=== PATIENT | male | born 1935 | race Caucasian/White ===

== ENCOUNTER → 2016-07-17 | Outpatient (CLI) | payer MEDICARE ==
[~2016-07-17] MED LIST: 8 HO650T PO; ACET500T37 PO; ALBU83IN INH; AMLO5TAB2 PO; ASPI325T PO; BENA40TA2 PO; BENCRE TOP; BISO5TAB5 PO; CARV25TA PO; CLOP75TA2 PO; COLA100C PO; DEXA10IN IV; DIGO0.25 PO; ELIQ5TAB PO; FURO10IN17 IM; FURO40SY IM; FURO40TA2 PO; FURO8INJ IM; GLIM4TAB PO; IPRASOL4 INH; MAGN400T5 PO; METF-415 PO; NITR2OI TOP; OMEP20CA3 PO; SENN8.6T8 PO; SIMV10TA2 PO; SITA50TAB PO; SPIR25TA2 PO; VITMTA PO
--- NOTE | 2016-07-17 13:24 | REP ---
CHEST X-RAY, TWO VIEWS: HISTORY: Congestive heart failure. Comparison chest x-ray June 20, 2016. FINDINGS: There is extensive bilateral calcific pleural plaquing consistent with previous asbestos exposure. There is also some pleural scarring and blunting of the posterior pleural angles unchanged. There is some pleuroparenchymal scarring along the right heart border unchanged. Heart is not enlarged. The aorta is calcific. No significant bony abnormality is seen. IMPRESSION: Extensive bilateral calcific pleural plaquing consistent with previous asbestos exposure. No evidence of infiltrate, pulmonary edema, or cardiomegaly.
== END ==
LOC: M CLY 11:23
PROVIDERS: ATTEND Family Medicine
DX: I50.9 Heart failure, unspecified (principal); R91.8 Other nonspecific abnormal finding of lung field

== ENCOUNTER 2016-07-19 07:49 | Emergency (ER) | payer MEDICARE ==
[2016-07-19 08:48] LABS: BASO % 0.2 % (0.0-1.0); EOS # 0.1 K/mm3 (0.0-0.50); EOS % 0.9 % (0.0-3.0); LARGE UNSTAINED CELL # 0.1 K/mm3 (0.0-0.4); LARGE UNSTAINED CELL % 1.7 % (0.0-4.0); LYMPH # 0.7 K/mm3 (1.5-4.5); LYMPH % 10.4 % (24.0-44.0); MEAN CORPUSCULAR HGB CONC 33.5 g/dl (32.0-36.5); MEAN CORPUSCULAR VOLUME 80.7 fl (80.0-96.0); MONO # 0.4 K/mm3 (0.0-0.8); MONO % 6.1 % (0.0-5.0); NEUTROPHILS # 5.1 K/mm3 (1.8-7.7); NEUTROPHILS % 80.7 % (36.0-66.0); PLATELET COUNT, AUTOMATED 155 k/mm3 (150-450); RED CELL DISTRIBUTION WIDTH 13.9 % (11.5-14.5); WHITE BLOOD COUNT 6.3 K/mm3 (4.0-10.0)
[2016-07-19 09:14] LABS: ALBUMIN 3.1 GM/DL (3.2-5.2); ALBUMIN/GLOBULIN RATIO 1.07 (1.00-1.93); ALKALINE PHOSPHATASE 114 U/L (45-117); ALT/SGPT 19 U/L (12-78); ANION GAP 9 MEQ/L (8-16); AST/SGOT 15 U/L (15-37); BILIRUBIN,DIRECT 0.2 MG/DL (0.0-0.2); BILIRUBIN,TOTAL 0.6 MG/DL (0.2-1.0); BLOOD UREA NITROGEN 13 MG/DL (7-18); CALCIUM LEVEL 8.7 MG/DL (8.8-10.2); CARBON DIOXIDE LEVEL 32 MEQ/L (21-32); CHLORIDE LEVEL 102 MEQ/L (98-107); CREATININE FOR GFR 0.84 MG/DL (0.70-1.30); GLOMERULAR FILTRATION RATE > 60.0 (>42); GLUCOSE, FASTING 129 MG/DL (83-110); POTASSIUM SERUM 4.4 MEQ/L (3.5-5.1); SODIUM LEVEL 143 MEQ/L (136-145)
--- NOTE | 2016-07-19 09:44 | REP ---
CT HEAD WITHOUT CONTRAST: HISTORY: Altered mental status. COMPARISON: 06/12/2016 Areas of decreased attenuation are present in the periventricular and subcortical white matter. This represents small vessel ischemic disease. There is no intraparenchymal hemorrhage, mass or midline shift. The ventricular system and cortical sulci as well as subarachnoid space in the posterior fossa are dilated consistent with moderate volume loss. There is no extracerebral collection. The visualized sinuses are clear. IMPRESSION: 1. Small vessel ischemic disease. 2. Moderate volume loss. Signed by Jonny Steinberg MD 07/19/2016 09:58 A
--- NOTE | 2016-07-19 09:46 | REP ---
SINGLE VIEW CHEST: Single view of the chest is performed. Comparison 07/17/2016 as well as prior exams. There are extensive bilateral calcified pleural plaques with significant pleural thickening and parenchymal fibrosis in the right lung base. There is no definite superimposed acute infiltrate. Heart is mildly prominent in size. There is mild calcification of the thoracic aorta. The mediastinal silhouette is unchanged. IMPRESSION: Extensive chronic changes as above without definite superimposed acute infiltrate. Signed by Aaron Correa MD 07/19/2016 03:18 P
--- NOTE | 2016-07-19 12:09 | ECGEPIP ---
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
--- NOTE | 2016-07-19 12:48 | EDDOCDS ---
Nurse's Notes [facility] Name: Ritchie Jin Age: 80 yrs Sex: Male : 1935 Arrival Date: 07/19/2016 Time: 07:49 Bed 17 Private MD: Cristian Dunlap D Diagnosis: Confusional arousals Presentation: 07/19 07:52 Presenting complaint: EMS states: Found in bath tub by , patient did not know how ck1 he got in tub. EMS called for stroke, no complaints/deficits. Suicide/Homicide risk assessment- the patient denies having any suicidal and/or homicidal ideations and does not present with any other emotional, behavioral or mental health complaints. 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 Transition of care: patient was not received from another setting of care. 07:52 Method Of Arrival: Ambulance ck1 07:59 Adult Sepsis Screening: Patient has new or worsening altered mentation (1 point). ck1 Patient's respiratory rate is less than 22. Systolic blood pressure is greater than 100. Patient has a qSOFA score of 1- Negative Sepsis Screen. 07:59 Acuity: CANDI Level 2 ck1 Triage Assessment: 08:08 General: Appears in no apparent distress, comfortable, Behavior is appropriate for age, ck1 cooperative, pleasant. Pain: Denies pain. Neurological: Level of Consciousness is awake, alert, Oriented to person, place. Cardiovascular: Rhythm is sinus rhythm. Respiratory: Respiratory effort is unlabored, Respiratory pattern is regular, symmetrical. GI: No deficits noted. Derm: Skin is pink, warm & dry. Musculoskeletal: Circulation, motion, and sensation intact Range of motion intact in all extremities. Historical: - Allergies: Oxycodone HCl; - Home Meds: 1. digoxin 125 mcg Oral tab 1 tab once daily 2. Plavix 75 mg Oral tab 1 tab once daily 3. bisoprolol fumarate 5 mg oral tab twice a day 4. metformin 1,000 mg Oral tab 1 tab 2 times per day 5. Tylenol 325 mg Oral tab 2 tabs every 4 hours as needed 6. aspirin 325 mg Oral tab 1 tab once daily 7. multivitamin Oral tab daily 8. nitroglycerin 0.4 mg SL subl as needed 9. Zocor 10 mg Oral tab 1 tab once daily 10. omeprazole 20 mg Oral cpDR 1 cap once daily 11. Senna with Docusate Sodium 8.6-50 mg oral tab 1 tabs once daily PRN 12. carvedilol 25 mg oral tab 1.5 tab 2 times per day 13. glimepiride 4 mg Oral tab 1 tab once daily 14. furosemide 40 mg Oral tab 1 tab 2 times per day 15. Januvia 50 mg oral tab once daily 16. Lasix 40 mg Oral tab 1.5 tabs once daily 17. spironolactone 25 mg Oral tab 0.5 tab once daily - PMHx: CHF; CVA; Diabetes - NIDDM: controlled; GERD; Hypercholesterolemia; Hypertension; - PSHx: Carpal Tunnel Repair- Bilateral; rebuild knuckle left thumb; - Social history: No barriers to communication noted, The patient speaks fluent Serbian, Speaks appropriately for age, Smoking status: Patient states was never smoker of tobacco. - Family history: Not pertinent. - : The pt / caregiver states he / she is on anticoagulants: Plavix. Home medication list is obtained from a discharge med list. - Exposure Risk Screening:: None identified. Screenin:14 Screening information is obtained from the patient. 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 A Fall Risk Bracelet was applied to the patient. Side Rails are placed in the up position. A Call [place] is given with instruction to call for help when getting out of bed. Fall Alert bracelet is placed on the patient. Assistance ADL's: Requires assistance with meal preparation, this assistance is provided by family members, housework, assistance is provided by family members, medication administration, assistance is provided by family members. Abuse/DV Screen: The patient / caregiver reports he/she is: not in a situation that causes fear, pain or injury. Nutritional screening: No deficits noted. home support is adequate. 08:41 Advance Directives: Currently, there is a health care proxy, Katelyn Jin (). ck1 Assessment: 08:16 General: see triage note. ck1 09:15 General: Appears in no apparent distress, comfortable, Behavior is appropriate for age, ck1 cooperative. Pain: Denies pain. Neurological: Level of Consciousness is awake, alert, obeys commands. Cardiovascular: Rhythm is irregular. Respiratory: Respiratory effort is unlabored, Respiratory pattern is regular, symmetrical. GI: No deficits noted. Derm: Skin is intact, Skin is pink, warm & dry. Musculoskeletal: Circulation, motion, and sensation intact Range of motion intact in all extremities. 10:15 Reassessment: Patient appears in no apparent distress at this time. Patient denies pain ck1 at this time. family members at bedside, call light in reach. 10:52 General: Appears in no apparent distress, comfortable, Behavior is appropriate for age, ck1 cooperative. Pain: Denies pain. Neurological: Level of Consciousness is awake, alert, obeys commands, Oriented to person, place. Cardiovascular: Rhythm is irregular Chest pain is denied. Respiratory: Respiratory effort is unlabored, Respiratory pattern is regular, symmetrical. GI: No deficits noted. Derm: Skin is intact, Skin is pink, warm & dry. Musculoskeletal: Circulation, motion, and sensation intact Range of motion intact in all extremities. 12:04 Reassessment: Patient appears in no apparent distress at this time. Patient denies pain ck1 at this time. resting quietly with eyes closed. Family members at bedside, call light in reach. Will continue to monitor patient. 12:38 General: Appears in no apparent distress, comfortable, Behavior is appropriate for age, ck1 cooperative. Pain: Denies pain. Neurological: Level of Consciousness is awake, alert, obeys commands, Oriented to person, place. Cardiovascular: Rhythm is irregular Chest pain is denied. Respiratory: Airway is patent Respiratory effort is even, unlabored, Respiratory pattern is regular, symmetrical. GI: No deficits noted. Derm: Skin is intact, Skin is pink, warm & dry. Musculoskeletal: Circulation, motion, and sensation intact Range of motion intact in all extremities. Vital Signs: 07:54 BP 165 / 81 (auto/); ck1 08:00 BP 165 / 81; Pulse 104; Resp 18; Temp 97.6(O); Pulse Ox 99% on R/A; Weight 66.59 kg ck1 (R); Height 66 in. (167.64 cm) (R); Pain 0/10; 08:01 Pulse 98 MON; Pulse Ox 98% ; ck1 08:15 BP 150 / 71 (auto/); ck1 08:15 Pulse 96 MON; Pulse Ox 97% ; ck1 08:29 Pulse 94 MON; Pulse Ox 96% ; ck1 08:30 BP 149 / 79 (auto/); ck1 08:45 BP 129 / 60 (auto/); ck1 08:45 Pulse 86 MON; Pulse Ox 97% ; ck1 09:00 BP 133 / 74 (auto/); ck1 09:00 Pulse 86 MON; Pulse Ox 97% ; ck1 09:15 BP 155 / 81 (auto/); ck1 09:15 Pulse 78 MON; Pulse Ox 96% ; ck1 09:30 BP 121 / 63 (auto/); ck1 09:30 Pulse 82 MON; Pulse Ox 97% ; ck1 09:45 BP 145 / 73 (auto/); ck1 09:45 Pulse 78 MON; Pulse Ox 96% ; ck1 10:00 BP 131 / 69 (auto/); ck1 10:00 Pulse 80 MON; Pulse Ox 96% ; ck1 10:15 BP 143 / 79 (auto/); ck1 10:15 Pulse 80 MON; Pulse Ox 97% ; ck1 10:29 Pulse 80 MON; Pulse Ox 97% ; ck1 10:30 BP 148 / 76 (auto/); ck1 10:45 BP 136 / 73 (auto/); ck1 10:45 Pulse 80 MON; Pulse Ox 95% ; ck1 11:00 BP 138 / 76 (auto/); ck1 11:00 Pulse 84 MON; Pulse Ox 98% ; ck1 11:15 BP 140 / 68 (auto/); ck1 11:15 Pulse 78 MON; Pulse Ox 97% ; ck1 11:30 Pulse 68 MON; Pulse Ox 97% ; ck1 11:30 BP 141 / 67 (auto/); ck1 11:45 BP 142 / 65 (auto/); ck1 11:45 Pulse 76 MON; Pulse Ox 97% ; ck1 12:00 BP 138 / 71 (auto/); ck1 12:00 Pulse 70 MON; Pulse Ox 97% ; ck1 12:15 BP 122 / 60 (auto/); ck1 12:15 Pulse 70 MON; Pulse Ox 96% ; ck1 12:16 Resp 18; Temp 98.2(O); Pain 0/10; ck1 12:38 BP 118 / 72; Pulse 85; Resp 18; Temp 98.2(O); Pulse Ox 97% on R/A; Pain 0/10; ck1 08:00 Body Mass Index 23.69 (66.59 kg, 167.64 cm) ck1 Vitals: 08:00 Log In Time N/A - ambulance arrival. ck1 ED Course: 07:50 Patient visited by Chad Denton PCA. jrd 07:50 Cristian Dunlap is Private Physician. jrd 07:50 Niurka Kaminski RN is Primary Nurse. jrd 07:50 Patient moved to Waiting jrd 07:50 Patient moved to 17 jrd 07:54 Mitali Rios MD is Attending Physician. fg 07:54 Patient visited by Mitali Rios MD. fg 08:00 Triage Initiated ck1 08:14 Patient visited by Niurka Kaminski RN. ck1 08:16 The patient / caregiver is instructed regarding the plan of care and ED course. ck1 08:16 Maintain field IV. Dressing intact. Site clean & dry. Gauge & site: 20 gauge in left FA.ck1 08:37 Patient visited by Karlos Walls PCA. jlf 08:37 Patient visited by Niurka Kaminski RN. ck1 08:37 Patient visited by Karlos Walls PCA. jlf 08:37 CBC with Diff Sent. ck1 08:37 Cardiac Injury Profile Sent. ck1 08:37 Liver Profile Sent. ck1 08:37 MED Profile Sent. ck1 08:37 Thyroid Stimulating Hormone Sent. ck1 08:37 EKG done. (by ED staff). Reviewed by Mitali Rios MD. jlf 08:37 Troponin Sent. ck1 08:37 Urinalysis Sent. ck1 08:38 Urine Culture Sent. ck1 09:00 [facility] [place] Agreement was scanned into [employer] and attached to record. pm4 09:04 Patient visited by Karlos Walls PCA. jlf 09:07 Patient name changed from Ritchie\S\\S\Foster\S\ to Ritchie\S\D\S\Foster. EDMS 09:28 Patient visited by Niurka Kaminski RN. ck1 09:43 Patient visited by Karlos Walls PCA. jlf 09:48 CT Head Without Contrast Returned. EDMS 09:48 Chest, 1 View Returned. EDMS 10:08 Patient visited by Niurka Kaminski RN. ck1 10:26 Patient visited by Karlos Walls PCA. jlf 10:50 Patient visited by Karlos Walls PCA. jlf 11:17 Patient visited by Karlos Walls PCA. jlf 11:45 Patient visited by Niurka Kaminski RN. ck1 12:04 Patient visited by Niurka Kaminski RN. ck1 12:09 No procedures done that require assistance. ck1 12:16 Patient visited by Niurka Kaminski RN. ck1 12:29 Cristian Dunlap is Referral Physician. fg 12:30 EKG-ADULT Returned. [facility] Point of Care Testing: Blood Glucose: 08:41 Blood Glucose: 122 mg/dL; ck1 Ranges: Order Results: Lab Order: CBC with Diff; SPEC'M 07/19/16 08:36 Test: WHITE BLOOD COUNT; Value: 6.3; Range: 4.0-10.0; Units: K/mm3; Status: F Test: RED BLOOD COUNT; Value: 4.32; Range: 4.30-6.10; Units: M/mm3; Status: F Test: HEMOGLOBIN; Value: 11.7; Range: 14.0-18.0; Abnormal: Below low normal; Units: g/dl; Status: F Test: HEMATOCRIT; Value: 34.8; Range: 42.0-52.0; Abnormal: Below low normal; Units: %; Status: F Test: MEAN CORPUSCULAR VOLUME; Value: 80.7; Range: 80.0-96.0; Units: fl; Status: F Test: MEAN CORPUSCULAR HEMOGLOBIN; Value: 27.0; Range: 27.0-33.0; Units: pg; Status: F Test: MEAN CORPUSCULAR HGB CONC; Value: 33.5; Range: 32.0-36.5; Units: g/dl; Status: F Test: RED CELL DISTRIBUTION WIDTH; Value: 13.9; Range: 11.5-14.5; Units: %; Status: F Test: PLATELET COUNT, AUTOMATED; Value: 155; Range: 150-450; Units: k/mm3; Status: F Test: NEUTROPHILS %; Value: 80.7; Range: 36.0-66.0; Abnormal: Above high normal; Units: %; Status: F Test: LYMPH %; Value: 10.4; Range: 24.0-44.0; Abnormal: Below low normal; Units: %; Status: F Test: MONO %; Value: 6.1; Range: 0.0-5.0; Abnormal: Above high normal; Units: %; Status: F Test: EOS %; Value: 0.9; Range: 0.0-3.0; Units: %; Status: F Test: BASO %; Value: 0.2; Range: 0.0-1.0; Units: %; Status: F Test: LARGE UNSTAINED CELL %; Value: 1.7; Range: 0.0-4.0; Units: %; Status: F Test: NEUTROPHILS #; Value: 5.1; Range: 1.8-7.7; Units: K/mm3; Status: F Test: LYMPH #; Value: 0.7; Range: 1.5-4.5; Abnormal: Below low normal; Units: K/mm3; Status: F Test: MONO #; Value: 0.4; Range: 0.0-0.8; Units: K/mm3; Status: F Test: EOS #; Value: 0.1; Range: 0.0-0.50; Units: K/mm3; Status: F Test: BASO #; Value: 0.0; Range: 0.0-0.2; Units: K/mm3; Status: F Test: LARGE UNSTAINED CELL #; Value: 0.1; Range: 0.0-0.4; Units: K/mm3; Status: F Lab Order: Cardiac Injury Profile; SPEC'M 07/19/16 08:36 Test: CPK CREATINE PHOSPHOKINASE; Value: 59; Range: 39-308; Units: U/L; Status: F Test: CK-MB VALUE MASS; Value: 2.9; Range: 0.0-3.6; Units: NG/ML; Status: F Test: MB/CK RELATIVE INDEX; Value: 4.91; Range: < OR =4; Abnormal: Above high normal; Status: F Test Note: ; DIAGNOSIS CRITERIA MMB ng/ml Relative Index (RI) NON-AMI < or = 5 N/A TAVARES ZONE > 5 < or = 4 AMI > 5 > 4 Lab Order: Liver Profile; SPEC'M 07/19/16 08:36 Test: AST/SGOT; Value: 15; Range: 15-37; Units: U/L; Status: F Test: ALT/SGPT; Value: 19; Range: 12-78; Units: U/L; Status: F Test: ALKALINE PHOSPHATASE; Value: 114; Range: 45-117; Units: U/L; Status: F Test: BILIRUBIN,TOTAL; Value: 0.6; Range: 0.2-1.0; Units: MG/DL; Status: F Test: BILIRUBIN,DIRECT; Value: 0.2; Range: 0.0-0.2; Units: MG/DL; Status: F Test: TOTAL PROTEIN; Value: 6.0; Range: 6.4-8.2; Abnormal: Below low normal; Units: GM/DL; Status: F Test: ALBUMIN; Value: 3.1; Range: 3.2-5.2; Abnormal: Below low normal; Units: GM/DL; Status: F Test: ALBUMIN/GLOBULIN RATIO; Value: 1.07; Range: 1.00-1.93; Status: F Lab Order: MED Profile; SPEC'M 07/19/16 08:36 Test: GLUCOSE, FASTING; Value: 129; Range: 83-110; Abnormal: Above high normal; Units: MG/DL; Status: F Test: BLOOD UREA NITROGEN; Value: 13; Range: 7-18; Units: MG/DL; Status: F Test: CREATININE FOR GFR; Value: 0.84; Range: 0.70-1.30; Units: MG/DL; Status: F Test: GLOMERULAR FILTRATION RATE; Value: > 60.0; Range: >42; Status: F Test: SODIUM LEVEL; Value: 143; Range: 136-145; Units: MEQ/L; Status: F Test: POTASSIUM SERUM; Value: 4.4; Range: 3.5-5.1; Units: MEQ/L; Status: F Test: CHLORIDE LEVEL; Value: 102; Range: 98-107; Units: MEQ/L; Status: F Test: CARBON DIOXIDE LEVEL; Value: 32; Range: 21-32; Units: MEQ/L; Status: F Test: ANION GAP; Value: 9; Range: 8-16; Units: MEQ/L; Status: F Test: CALCIUM LEVEL; Value: 8.7; Range: 8.8-10.2; Abnormal: Below low normal; Units: MG/DL; Status: F Test Note: ; Units are mL/min/1.73 m2 Chronic Kidney Disease Staging per NKF: Stage I & II GFR >=60 Normal to Mildly Decreased Stage III GFR 30-59 Moderately Decreased Stage IV GFR 15-29 Severely Decreased Stage V GFR <15 Very Little GFR Left ESRD GFR <15 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 0.10-1.50 ng/ml Increased Risk for Adverse Clinical Events. Evaluation of additional criterion and/or repeat testing in 2-6 hours is suggested to rule out myocardial damage. >= 1.50 ng/ml Indicative of Myocardial Injury. Lab Order: Urinalysis; SPEC'M 07/19/16 08:36 Test: APPEARANCE, URINE; Value: CLEAR; Range: CLEAR; Status: F Test: COLOR, URINE; Value: YELLOW; Range: YELLOW; Status: F Test: PH,URINE; Value: 5.0; Range: 5.0-9.0; Units: UNITS; Status: F Test: SPECIFIC GRAVITY URINE AUTO; Value: 1.015; Range: 1.002-1.035; Status: F Test: PROTEIN, URINE AUTO; Value: NEGATIVE; Range: NEGATIVE; Units: mg/dL; Status: F Test: GLUCOSE, URINE (UA) AUTO; Value: NEGATIVE; Range: NEGATIVE; Units: mg/dL; Status: F Test: KETONE, URINE AUTO; Value: NEGATIVE; Range: NEGATIVE; Units: mg/dL; Status: F Test: UROBILINOGEN, URINE AUTO; Value: 0.2; Range: 0.0-2.0; Units: mg/dL; Status: F Test: BILIRUBIN, URINE AUTO; Value: NEGATIVE; Range: NEGATIVE; Status: F Test: NITRITE, URINE AUTO; Value: NEGATIVE; Range: NEGATIVE; Status: F Test: LEUKOCYTE ESTERASE, URINE AUTO; Value: NEGATIVE; Range: NEGATIVE; Status: F Test: BLOOD, URINE BLOOD; Value: NEGATIVE; Range: NEGATIVE; Status: F Test: WBC, URINE AUTO; Value: 1; Range: 0-3; Units: /HPF; Status: F Test: RBC, URINE AUTO; Value: 1; Range: 0-3; Units: /HPF; Status: F Test: BACTERIA, URINE AUTO; Value: NEGATIVE; Range: NEGATIVE; Status: F Test: SQUAMOUS EPITHELIAL CELL UR AU; Value: 0; Range: 0-6; Units: /HPF; Status: F Test: MUCUS, URINE; Value: SMALL; Range: NEGATIVE; Status: F Test: HYALINE CAST, URINE AUTO; Value: 8; Range: 0-1; Units: /LPF; Status: F Lab Order: Fingerstick Blood Sugar; SPEC'M 07/19/16 08:40 Test: BEDSIDE GLUCOSE; Value: 122; Range: 83-110; Abnormal: Above high normal; Units: MG/DL; Status: F Radiology Order: CT Head Without Contrast Test: CT Head Without Contrast REASON FOR EXAMINATION: altered mental status; CT HEAD WITHOUT CONTRAST:; ; HISTORY: Altered mental status.; ; COMPARISON: 06/12/2016; ; Areas of decreased attenuation are present in the periventricular and subcortical; white matter. This represents small vessel ischemic disease. There is no; intraparenchymal hemorrhage, mass or midline shift. The ventricular system and; cortical sulci as well as subarachnoid space in the posterior fossa are dilated; consistent with moderate volume loss. There is no extracerebral collection. The; visualized sinuses are clear.; ; IMPRESSION:; ; 1. Small vessel ischemic disease.; ; 2. Moderate volume loss.; ; ; Signed by; Jonny Steinberg MD 07/19/2016 09:58 A; Radiology Order: Chest, 1 View Test: Chest, 1 View REASON FOR EXAMINATION: Chest Pain; SINGLE VIEW CHEST:; ; Single view of the chest is performed. Comparison 07/17/2016 as well as prior; exams.; ; There are extensive bilateral calcified pleural plaques with significant pleural; thickening and parenchymal fibrosis in the right lung base. There is no definite; superimposed acute infiltrate. Heart is mildly prominent in size. There is mild; calcification of the thoracic aorta. 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 ck1 12:09 Discharge Assessment: patient administered narcotics - no. Property :Personal ck1 belongings accompany Pt. 12:29 Discharge ordered by Provider. fg 12:37 The following High Risk Discharge criteria are identified: None. Discharged to home ck1 ambulatory, with family. Condition: stable. Discharge instructions given to patient, family, Instructed on discharge instructions, follow up and referral plans. medication usage, Demonstrated understanding of instructions, medications, Pt was receptive of discharge instructions/ teaching. 12:46 Patient left the ED. ck1 Signatures: Dispatcher [employer] Niurka Tabor RN RN ck1 Karlos Walls, FRUIT AND VEGETABLE PACKER FRUIT AND VEGETABLE PACKER Chad Garcia, FRUIT AND VEGETABLE PACKER FRUIT AND VEGETABLE PACKER Mitali Rubio MD MD fg Montondo, Paul, Reg Reg pm4 MTDD
--- NOTE | 2016-07-19 12:48 | EDDOCDS ---
Physician Documentation [facility] Name: Ritchie Jin Age: 80 yrs Sex: Male : 1935 Arrival Date: 07/19/2016 Time: 07:49 Bed 17 Private MD: Cristian Dunlap D Disposition: 07/19/16 12:29 Discharged to Home/Self Care. Impression: Confusional arousals. - Condition is Stable. - Discharge Instructions: Confusion. - Medication Reconciliation, Local Pharmacy Hours form. - Follow up: Cristian Dunlap; When: Call to arrange an appointment; Reason: Continuance of care. - Problem is new. - Symptoms have improved. Historical: - Allergies: Oxycodone HCl; - Home Meds: 1. digoxin 125 mcg Oral tab 1 tab once daily 2. Plavix 75 mg Oral tab 1 tab once daily 3. bisoprolol fumarate 5 mg oral tab twice a day 4. metformin 1,000 mg Oral tab 1 tab 2 times per day 5. Tylenol 325 mg Oral tab 2 tabs every 4 hours as needed 6. aspirin 325 mg Oral tab 1 tab once daily 7. multivitamin Oral tab daily 8. nitroglycerin 0.4 mg SL subl as needed 9. Zocor 10 mg Oral tab 1 tab once daily 10. omeprazole 20 mg Oral cpDR 1 cap once daily 11. Senna with Docusate Sodium 8.6-50 mg oral tab 1 tabs once daily PRN 12. carvedilol 25 mg oral tab 1.5 tab 2 times per day 13. glimepiride 4 mg Oral tab 1 tab once daily 14. furosemide 40 mg Oral tab 1 tab 2 times per day 15. Januvia 50 mg oral tab once daily 16. Lasix 40 mg Oral tab 1.5 tabs once daily 17. spironolactone 25 mg Oral tab 0.5 tab once daily - PMHx: CHF; CVA; Diabetes - NIDDM: controlled; GERD; Hypercholesterolemia; Hypertension; - PSHx: Carpal Tunnel Repair- Bilateral; rebuild knuckle left thumb; - Social history: No barriers to communication noted, The patient speaks fluent Malay, Speaks appropriately for age, Smoking status: Patient states was never smoker of tobacco. - Family history: Not pertinent. - : The pt / caregiver states he / she is on anticoagulants: Plavix. Home medication list is obtained from a discharge med list. - Exposure Risk Screening:: None identified. Vital Signs: 07/19 07:54 BP 165 / 81 (auto/); ck1 08:00 BP 165 / 81; Pulse 104; Resp 18; Temp 97.6(O); Pulse Ox 99% on R/A; Weight 66.59 kg / ck1 146.81 lbs (R); Height 66 in. (167.64 cm) (R); Pain 0/10; 08:01 Pulse 98 MON; Pulse Ox 98% ; ck1 08:15 BP 150 / 71 (auto/); ck1 08:15 Pulse 96 MON; Pulse Ox 97% ; ck1 08:29 Pulse 94 MON; Pulse Ox 96% ; ck1 08:30 BP 149 / 79 (auto/); ck1 08:45 BP 129 / 60 (auto/); ck1 08:45 Pulse 86 MON; Pulse Ox 97% ; ck1 09:00 BP 133 / 74 (auto/); ck1 09:00 Pulse 86 MON; Pulse Ox 97% ; ck1 09:15 BP 155 / 81 (auto/); ck1 09:15 Pulse 78 MON; Pulse Ox 96% ; ck1 09:30 BP 121 / 63 (auto/); ck1 09:30 Pulse 82 MON; Pulse Ox 97% ; ck1 09:45 BP 145 / 73 (auto/); ck1 09:45 Pulse 78 MON; Pulse Ox 96% ; ck1 10:00 BP 131 / 69 (auto/); ck1 10:00 Pulse 80 MON; Pulse Ox 96% ; ck1 10:15 BP 143 / 79 (auto/); ck1 10:15 Pulse 80 MON; Pulse Ox 97% ; ck1 10:29 Pulse 80 MON; Pulse Ox 97% ; ck1 10:30 BP 148 / 76 (auto/); ck1 10:45 BP 136 / 73 (auto/); ck1 10:45 Pulse 80 MON; Pulse Ox 95% ; ck1 11:00 BP 138 / 76 (auto/); ck1 11:00 Pulse 84 MON; Pulse Ox 98% ; ck1 11:15 BP 140 / 68 (auto/); ck1 11:15 Pulse 78 MON; Pulse Ox 97% ; ck1 11:30 Pulse 68 MON; Pulse Ox 97% ; ck1 11:30 BP 141 / 67 (auto/); ck1 11:45 BP 142 / 65 (auto/); ck1 11:45 Pulse 76 MON; Pulse Ox 97% ; ck1 12:00 BP 138 / 71 (auto/); ck1 12:00 Pulse 70 MON; Pulse Ox 97% ; ck1 12:15 BP 122 / 60 (auto/); ck1 12:15 Pulse 70 MON; Pulse Ox 96% ; ck1 12:16 Resp 18; Temp 98.2(O); Pain 0/10; ck1 12:38 BP 118 / 72; Pulse 85; Resp 18; Temp 98.2(O); Pulse Ox 97% on R/A; Pain 0/10; ck1 08:00 Body Mass Index 23.69 (66.59 kg, 167.64 cm) ck1 MDM: 08:05 Particle Board Supervisor/Pulse Ox/q 15 min VS ordered. fg 08:05 Accucheck ordered. fg 08:05 IV Saline Lock ordered. fg 08:05 Oxygen at 4L/Min NC or Home dosage ordered. fg 08:05 Rhythm Strip to chart ordered. fg 08:05 Chest, 1 View Ordered. EDMS 08:05 CBC with Diff Ordered. EDMS 08:05 Cardiac Injury Profile Ordered. EDMS 08:05 Liver Profile Ordered. EDMS 08:05 MED Profile Ordered. EDMS 08:05 Thyroid Stimulating Hormone Ordered. EDMS 08:05 Troponin Ordered. EDMS 08:06 Urinalysis Ordered. EDMS 08:06 Urine Culture Ordered. EDMS 08:06 CT Head Without Contrast Ordered. EDMS 08:06 ECG WITH READING ER PHYS+CARDIAG ordered. EDMS 08:47 Fingerstick Blood Sugar Ordered. EDMS 08:59 Financial registration complete. pm4 09:00 [facility] [place] was [place] into [employer] and attached to record. pm4 Point of Care Testing: Blood Glucose: 08:41 Blood Glucose: 122 mg/dL; ck1 Ranges: Signatures: Dispatcher [employer] Niurka Tabor RN RN ck1 Mitali Rios MD MD fg Shad Gold, Reg Reg pm4 The chart was reviewed and I authenticate all verbal orders and agree with the evaluation and treatment provided.Attachments: 09:00 [facility] [place] pm4 MTDD
--- NOTE | 2016-07-21 13:47 | EDDOCDS ---
Physician Documentation [facility] Name: Ritchie Jin Age: 80 yrs Sex: Male : 1935 Arrival Date: 07/19/2016 Time: 07:49 Bed 17 Private MD: Cristian Dunlap D Disposition: 07/19/16 12:29 Discharged to Home/Self Care. Impression: Confusional arousals. - Condition is Stable. - Discharge Instructions: Confusion. - Medication Reconciliation, Local Pharmacy Hours form. - Follow up: Cristian Dunlap; When: Call to arrange an appointment; Reason: Continuance of care. - Problem is new. - Symptoms have improved. Historical: - Allergies: Oxycodone HCl; - Home Meds: 1. digoxin 125 mcg Oral tab 1 tab once daily 2. Plavix 75 mg Oral tab 1 tab once daily 3. bisoprolol fumarate 5 mg oral tab twice a day 4. metformin 1,000 mg Oral tab 1 tab 2 times per day 5. Tylenol 325 mg Oral tab 2 tabs every 4 hours as needed 6. aspirin 325 mg Oral tab 1 tab once daily 7. multivitamin Oral tab daily 8. nitroglycerin 0.4 mg SL subl as needed 9. Zocor 10 mg Oral tab 1 tab once daily 10. omeprazole 20 mg Oral cpDR 1 cap once daily 11. Senna with Docusate Sodium 8.6-50 mg oral tab 1 tabs once daily PRN 12. carvedilol 25 mg oral tab 1.5 tab 2 times per day 13. glimepiride 4 mg Oral tab 1 tab once daily 14. furosemide 40 mg Oral tab 1 tab 2 times per day 15. Januvia 50 mg oral tab once daily 16. Lasix 40 mg Oral tab 1.5 tabs once daily 17. spironolactone 25 mg Oral tab 0.5 tab once daily - PMHx: CHF; CVA; Diabetes - NIDDM: controlled; GERD; Hypercholesterolemia; Hypertension; - PSHx: Carpal Tunnel Repair- Bilateral; rebuild knuckle left thumb; - Social history: No barriers to communication noted, The patient speaks fluent Danish, Speaks appropriately for age, Smoking status: Patient states was never smoker of tobacco. - Family history: Not pertinent. - : The pt / caregiver states he / she is on anticoagulants: Plavix. Home medication list is obtained from a discharge med list. - Exposure Risk Screening:: None identified. Vital Signs: 07/19 07:54 BP 165 / 81 (auto/); ck1 08:00 BP 165 / 81; Pulse 104; Resp 18; Temp 97.6(O); Pulse Ox 99% on R/A; Weight 66.59 kg / ck1 146.81 lbs (R); Height 66 in. (167.64 cm) (R); Pain 0/10; 08:01 Pulse 98 MON; Pulse Ox 98% ; ck1 08:15 BP 150 / 71 (auto/); ck1 08:15 Pulse 96 MON; Pulse Ox 97% ; ck1 08:29 Pulse 94 MON; Pulse Ox 96% ; ck1 08:30 BP 149 / 79 (auto/); ck1 08:45 BP 129 / 60 (auto/); ck1 08:45 Pulse 86 MON; Pulse Ox 97% ; ck1 09:00 BP 133 / 74 (auto/); ck1 09:00 Pulse 86 MON; Pulse Ox 97% ; ck1 09:15 BP 155 / 81 (auto/); ck1 09:15 Pulse 78 MON; Pulse Ox 96% ; ck1 09:30 BP 121 / 63 (auto/); ck1 09:30 Pulse 82 MON; Pulse Ox 97% ; ck1 09:45 BP 145 / 73 (auto/); ck1 09:45 Pulse 78 MON; Pulse Ox 96% ; ck1 10:00 BP 131 / 69 (auto/); ck1 10:00 Pulse 80 MON; Pulse Ox 96% ; ck1 10:15 BP 143 / 79 (auto/); ck1 10:15 Pulse 80 MON; Pulse Ox 97% ; ck1 10:29 Pulse 80 MON; Pulse Ox 97% ; ck1 10:30 BP 148 / 76 (auto/); ck1 10:45 BP 136 / 73 (auto/); ck1 10:45 Pulse 80 MON; Pulse Ox 95% ; ck1 11:00 BP 138 / 76 (auto/); ck1 11:00 Pulse 84 MON; Pulse Ox 98% ; ck1 11:15 BP 140 / 68 (auto/); ck1 11:15 Pulse 78 MON; Pulse Ox 97% ; ck1 11:30 Pulse 68 MON; Pulse Ox 97% ; ck1 11:30 BP 141 / 67 (auto/); ck1 11:45 BP 142 / 65 (auto/); ck1 11:45 Pulse 76 MON; Pulse Ox 97% ; ck1 12:00 BP 138 / 71 (auto/); ck1 12:00 Pulse 70 MON; Pulse Ox 97% ; ck1 12:15 BP 122 / 60 (auto/); ck1 12:15 Pulse 70 MON; Pulse Ox 96% ; ck1 12:16 Resp 18; Temp 98.2(O); Pain 0/10; ck1 12:38 BP 118 / 72; Pulse 85; Resp 18; Temp 98.2(O); Pulse Ox 97% on R/A; Pain 0/10; ck1 08:00 Body Mass Index 23.69 (66.59 kg, 167.64 cm) ck1 MDM: 08:05 Microfilm Machine Operator/Pulse Ox/q 15 min VS ordered. fg 08:05 Accucheck ordered. fg 08:05 IV Saline Lock ordered. fg 08:05 Oxygen at 4L/Min NC or Home dosage ordered. fg 08:05 Rhythm Strip to chart ordered. fg 08:05 Chest, 1 View Ordered. EDMS 08:05 CBC with Diff Ordered. EDMS 08:05 Cardiac Injury Profile Ordered. EDMS 08:05 Liver Profile Ordered. EDMS 08:05 MED Profile Ordered. EDMS 08:05 Thyroid Stimulating Hormone Ordered. EDMS 08:05 Troponin Ordered. EDMS 08:06 Urinalysis Ordered. EDMS 08:06 Urine Culture Ordered. EDMS 08:06 CT Head Without Contrast Ordered. EDMS 08:06 ECG WITH READING ER PHYS+CARDIAG ordered. EDMS 08:47 Fingerstick Blood Sugar Ordered. EDMS 08:59 Financial registration complete. pm4 09:00 [facility] [place] Payment Agreement was scanned into CX and attached to record. pm4 14:17 PCR was scanned into CX and attached to record. jrd 07/20 07:17 T-Sheet-- Draft Copy was scanned into CX and attached to record. gb 11:51 ECG/EKG was scanned into CX and attached to record. gb Point of Care Testing: Blood Glucose: 07/19 08:41 Blood Glucose: 122 mg/dL; ck1 Ranges: Signatures: Dispatcher [employer] EDMS Karol Hung, Reg Reg gb Niurka Kaminski,RN RN ck1 Chad Denton, ESCROW OFFICER ESCROW OFFICER jrd Mitali Rios MD MD Shad Gold, Reg Reg pm4 The chart was reviewed and I authenticate all verbal orders and agree with the evaluation and treatment provided.Attachments: 09:00 [facility] Payment Agreement pm4 07/20 07:17 T-Sheet-- Draft Copy gb 11:51 ECG/EKG gb Chart Complete MTDD
--- NOTE | 2016-07-21 13:47 | EDDOCDS ---
Physician Documentation [facility] Name: Ritchie Jin Age: 80 yrs Sex: Male : 1935 Arrival Date: 07/19/2016 Time: 07:49 Bed 17 Private MD: Cristian Dunlap D Disposition: 07/19/16 12:29 Discharged to Home/Self Care. Impression: Confusional arousals. - Condition is Stable. - Discharge Instructions: Confusion. - Medication Reconciliation, Local Pharmacy Hours form. - Follow up: Cristian Dunlap; When: Call to arrange an appointment; Reason: Continuance of care. - Problem is new. - Symptoms have improved. Historical: - Allergies: Oxycodone HCl; - Home Meds: 1. digoxin 125 mcg Oral tab 1 tab once daily 2. Plavix 75 mg Oral tab 1 tab once daily 3. bisoprolol fumarate 5 mg oral tab twice a day 4. metformin 1,000 mg Oral tab 1 tab 2 times per day 5. Tylenol 325 mg Oral tab 2 tabs every 4 hours as needed 6. aspirin 325 mg Oral tab 1 tab once daily 7. multivitamin Oral tab daily 8. nitroglycerin 0.4 mg SL subl as needed 9. Zocor 10 mg Oral tab 1 tab once daily 10. omeprazole 20 mg Oral cpDR 1 cap once daily 11. Senna with Docusate Sodium 8.6-50 mg oral tab 1 tabs once daily PRN 12. carvedilol 25 mg oral tab 1.5 tab 2 times per day 13. glimepiride 4 mg Oral tab 1 tab once daily 14. furosemide 40 mg Oral tab 1 tab 2 times per day 15. Januvia 50 mg oral tab once daily 16. Lasix 40 mg Oral tab 1.5 tabs once daily 17. spironolactone 25 mg Oral tab 0.5 tab once daily - PMHx: CHF; CVA; Diabetes - NIDDM: controlled; GERD; Hypercholesterolemia; Hypertension; - PSHx: Carpal Tunnel Repair- Bilateral; rebuild knuckle left thumb; - Social history: No barriers to communication noted, The patient speaks fluent Maltese, Speaks appropriately for age, Smoking status: Patient states was never smoker of tobacco. - Family history: Not pertinent. - : The pt / caregiver states he / she is on anticoagulants: Plavix. Home medication list is obtained from a discharge med list. - Exposure Risk Screening:: None identified. Vital Signs: 07/19 07:54 BP 165 / 81 (auto/); ck1 08:00 BP 165 / 81; Pulse 104; Resp 18; Temp 97.6(O); Pulse Ox 99% on R/A; Weight 66.59 kg / ck1 146.81 lbs (R); Height 66 in. (167.64 cm) (R); Pain 0/10; 08:01 Pulse 98 MON; Pulse Ox 98% ; ck1 08:15 BP 150 / 71 (auto/); ck1 08:15 Pulse 96 MON; Pulse Ox 97% ; ck1 08:29 Pulse 94 MON; Pulse Ox 96% ; ck1 08:30 BP 149 / 79 (auto/); ck1 08:45 BP 129 / 60 (auto/); ck1 08:45 Pulse 86 MON; Pulse Ox 97% ; ck1 09:00 BP 133 / 74 (auto/); ck1 09:00 Pulse 86 MON; Pulse Ox 97% ; ck1 09:15 BP 155 / 81 (auto/); ck1 09:15 Pulse 78 MON; Pulse Ox 96% ; ck1 09:30 BP 121 / 63 (auto/); ck1 09:30 Pulse 82 MON; Pulse Ox 97% ; ck1 09:45 BP 145 / 73 (auto/); ck1 09:45 Pulse 78 MON; Pulse Ox 96% ; ck1 10:00 BP 131 / 69 (auto/); ck1 10:00 Pulse 80 MON; Pulse Ox 96% ; ck1 10:15 BP 143 / 79 (auto/); ck1 10:15 Pulse 80 MON; Pulse Ox 97% ; ck1 10:29 Pulse 80 MON; Pulse Ox 97% ; ck1 10:30 BP 148 / 76 (auto/); ck1 10:45 BP 136 / 73 (auto/); ck1 10:45 Pulse 80 MON; Pulse Ox 95% ; ck1 11:00 BP 138 / 76 (auto/); ck1 11:00 Pulse 84 MON; Pulse Ox 98% ; ck1 11:15 BP 140 / 68 (auto/); ck1 11:15 Pulse 78 MON; Pulse Ox 97% ; ck1 11:30 Pulse 68 MON; Pulse Ox 97% ; ck1 11:30 BP 141 / 67 (auto/); ck1 11:45 BP 142 / 65 (auto/); ck1 11:45 Pulse 76 MON; Pulse Ox 97% ; ck1 12:00 BP 138 / 71 (auto/); ck1 12:00 Pulse 70 MON; Pulse Ox 97% ; ck1 12:15 BP 122 / 60 (auto/); ck1 12:15 Pulse 70 MON; Pulse Ox 96% ; ck1 12:16 Resp 18; Temp 98.2(O); Pain 0/10; ck1 12:38 BP 118 / 72; Pulse 85; Resp 18; Temp 98.2(O); Pulse Ox 97% on R/A; Pain 0/10; ck1 08:00 Body Mass Index 23.69 (66.59 kg, 167.64 cm) ck1 MDM: 08:05 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 fg 08:05 Accucheck ordered. fg 08:05 IV Saline Lock ordered. fg 08:05 Oxygen at 4L/Min NC or Home dosage ordered. fg 08:05 Rhythm Strip to chart ordered. fg 08:05 Chest, 1 View Ordered. EDMS 08:05 CBC with Diff Ordered. EDMS 08:05 Cardiac Injury Profile Ordered. EDMS 08:05 Liver Profile Ordered. EDMS 08:05 MED Profile Ordered. EDMS 08:05 Thyroid Stimulating Hormone Ordered. EDMS 08:05 Troponin Ordered. EDMS 08:06 Urinalysis Ordered. EDMS 08:06 Urine Culture Ordered. EDMS 08:06 CT Head Without Contrast Ordered. EDMS 08:06 ECG WITH READING ER PHYS+CARDIAG ordered. EDMS 08:47 Fingerstick Blood Sugar Ordered. EDMS 08:59 Financial registration complete. pm4 09:00 [facility] [place] was scanned into [employer] and attached to record. pm4 14:17 PCR was scanned into [employer] and attached to record. jrd 07/20 07:17 T-Sheet-- Draft Copy was scanned into [employer] and attached to record. gb 11:51 ECG/EKG was scanned into [employer] and attached to record. gb Point of Care Testing: Blood Glucose: 07/19 08:41 Blood Glucose: 122 mg/dL; ck1 Ranges: Signatures: Dispatcher [employer] EDMS Karol Hung, Reg Reg gb Niurka Kaminski,RN RN ck1 Chad Denton, YARD SUPERVISOR COTTON GIN YARD SUPERVISOR COTTON GIN jrd Mitali Rios MD MD Shad Gold, Reg Reg pm4 The chart was reviewed and I authenticate all verbal orders and agree with the evaluation and treatment provided.Attachments: 09:00 [facility] Payment Agreement pm4 07/20 07:17 T-Sheet-- Draft Copy gb 11:51 ECG/EKG gb Chart Complete MTDD
--- NOTE | 2016-07-21 13:48 | EDDOCDS ---
Nurse's Notes [facility] [place] [facility] Name: Ritchie Jin Age: 80 yrs Sex: Male : 1935 Arrival Date: 07/19/2016 Time: 07:49 Bed 17 Private MD: Cristian Dunlap D Diagnosis: Confusional arousals Presentation: 07/19 07:52 Presenting complaint: EMS states: Found in bath tub by , patient did not know how ck1 he got in tub. EMS called for stroke, no complaints/deficits. Suicide/Homicide risk assessment- the patient denies having any suicidal and/or homicidal ideations and does not present with any other emotional, behavioral or mental health complaints. Status: Patient is not a environmental services associate or dependent. Transition of care: patient was not received from another setting of care. 07:52 Method Of Arrival: Ambulance ck1 07:59 Adult Sepsis Screening: Patient has new or worsening altered mentation (1 point). ck1 Patient's respiratory rate is less than 22. Systolic blood pressure is greater than 100. Patient has a qSOFA score of 1- Negative Sepsis Screen. 07:59 Acuity: CANDI Level 2 ck1 Triage Assessment: 08:08 General: Appears in no apparent distress, comfortable, Behavior is appropriate for age, ck1 cooperative, pleasant. Pain: Denies pain. Neurological: Level of Consciousness is awake, alert, Oriented to person, place. Cardiovascular: Rhythm is sinus rhythm. Respiratory: Respiratory effort is unlabored, Respiratory pattern is regular, symmetrical. GI: No deficits noted. Derm: Skin is pink, warm & dry. Musculoskeletal: Circulation, motion, and sensation intact Range of motion intact in all extremities. Historical: - Allergies: Oxycodone HCl; - Home Meds: 1. digoxin 125 mcg Oral tab 1 tab once daily 2. Plavix 75 mg Oral tab 1 tab once daily 3. bisoprolol fumarate 5 mg oral tab twice a day 4. metformin 1,000 mg Oral tab 1 tab 2 times per day 5. Tylenol 325 mg Oral tab 2 tabs every 4 hours as needed 6. aspirin 325 mg Oral tab 1 tab once daily 7. multivitamin Oral tab daily 8. nitroglycerin 0.4 mg SL subl as needed 9. Zocor 10 mg Oral tab 1 tab once daily 10. omeprazole 20 mg Oral cpDR 1 cap once daily 11. Senna with Docusate Sodium 8.6-50 mg oral tab 1 tabs once daily PRN 12. carvedilol 25 mg oral tab 1.5 tab 2 times per day 13. glimepiride 4 mg Oral tab 1 tab once daily 14. furosemide 40 mg Oral tab 1 tab 2 times per day 15. Januvia 50 mg oral tab once daily 16. Lasix 40 mg Oral tab 1.5 tabs once daily 17. spironolactone 25 mg Oral tab 0.5 tab once daily - PMHx: CHF; CVA; Diabetes - NIDDM: controlled; GERD; Hypercholesterolemia; Hypertension; - PSHx: Carpal Tunnel Repair- Bilateral; rebuild knuckle left thumb; - Social history: No barriers to communication noted, The patient speaks fluent Urdu, Speaks appropriately for age, Smoking status: Patient states was never smoker of tobacco. - Family history: Not pertinent. - : The pt / caregiver states he / she is on anticoagulants: Plavix. Home medication list is obtained from a discharge med list. - Exposure Risk Screening:: None identified. Screenin:14 Screening information is obtained from the patient. 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 A Fall Risk Bracelet was applied to the patient. Side Rails are placed in the up position. A Call Corbin is given with instruction to call for help when getting out of bed. Fall Alert bracelet is placed on the patient. Assistance ADL's: Requires assistance with meal preparation, this assistance is provided by family members, housework, assistance is provided by family members, medication administration, assistance is provided by family members. Abuse/DV Screen: The patient / caregiver reports he/she is: not in a situation that causes fear, pain or injury. Nutritional screening: No deficits noted. home support is adequate. 08:41 Advance Directives: Currently, there is a health care proxy, Katelyn Jin (). ck1 Assessment: 08:16 General: see triage note. ck1 09:15 General: Appears in no apparent distress, comfortable, Behavior is appropriate for age, ck1 cooperative. Pain: Denies pain. Neurological: Level of Consciousness is awake, alert, obeys commands. Cardiovascular: Rhythm is irregular. Respiratory: Respiratory effort is unlabored, Respiratory pattern is regular, symmetrical. GI: No deficits noted. Derm: Skin is intact, Skin is pink, warm & dry. Musculoskeletal: Circulation, motion, and sensation intact Range of motion intact in all extremities. 10:15 Reassessment: Patient appears in no apparent distress at this time. Patient denies pain ck1 at this time. family members at bedside, call light in reach. 10:52 General: Appears in no apparent distress, comfortable, Behavior is appropriate for age, ck1 cooperative. Pain: Denies pain. Neurological: Level of Consciousness is awake, alert, obeys commands, Oriented to person, place. Cardiovascular: Rhythm is irregular Chest pain is denied. Respiratory: Respiratory effort is unlabored, Respiratory pattern is regular, symmetrical. GI: No deficits noted. Derm: Skin is intact, Skin is pink, warm & dry. Musculoskeletal: Circulation, motion, and sensation intact Range of motion intact in all extremities. 12:04 Reassessment: Patient appears in no apparent distress at this time. Patient denies pain ck1 at this time. resting quietly with eyes closed. Family members at bedside, call light in reach. Will continue to monitor patient. 12:38 General: Appears in no apparent distress, comfortable, Behavior is appropriate for age, ck1 cooperative. Pain: Denies pain. Neurological: Level of Consciousness is awake, alert, obeys commands, Oriented to person, place. Cardiovascular: Rhythm is irregular Chest pain is denied. Respiratory: Airway is patent Respiratory effort is even, unlabored, Respiratory pattern is regular, symmetrical. GI: No deficits noted. Derm: Skin is intact, Skin is pink, warm & dry. Musculoskeletal: Circulation, motion, and sensation intact Range of motion intact in all extremities. Vital Signs: 07:54 BP 165 / 81 (auto/); ck1 08:00 BP 165 / 81; Pulse 104; Resp 18; Temp 97.6(O); Pulse Ox 99% on R/A; Weight 66.59 kg ck1 (R); Height 66 in. (167.64 cm) (R); Pain 0/10; 08:01 Pulse 98 MON; Pulse Ox 98% ; ck1 08:15 BP 150 / 71 (auto/); ck1 08:15 Pulse 96 MON; Pulse Ox 97% ; ck1 08:29 Pulse 94 MON; Pulse Ox 96% ; ck1 08:30 BP 149 / 79 (auto/); ck1 08:45 BP 129 / 60 (auto/); ck1 08:45 Pulse 86 MON; Pulse Ox 97% ; ck1 09:00 BP 133 / 74 (auto/); ck1 09:00 Pulse 86 MON; Pulse Ox 97% ; ck1 09:15 BP 155 / 81 (auto/); ck1 09:15 Pulse 78 MON; Pulse Ox 96% ; ck1 09:30 BP 121 / 63 (auto/); ck1 09:30 Pulse 82 MON; Pulse Ox 97% ; ck1 09:45 BP 145 / 73 (auto/); ck1 09:45 Pulse 78 MON; Pulse Ox 96% ; ck1 10:00 BP 131 / 69 (auto/); ck1 10:00 Pulse 80 MON; Pulse Ox 96% ; ck1 10:15 BP 143 / 79 (auto/); ck1 10:15 Pulse 80 MON; Pulse Ox 97% ; ck1 10:29 Pulse 80 MON; Pulse Ox 97% ; ck1 10:30 BP 148 / 76 (auto/); ck1 10:45 BP 136 / 73 (auto/); ck1 10:45 Pulse 80 MON; Pulse Ox 95% ; ck1 11:00 BP 138 / 76 (auto/); ck1 11:00 Pulse 84 MON; Pulse Ox 98% ; ck1 11:15 BP 140 / 68 (auto/); ck1 11:15 Pulse 78 MON; Pulse Ox 97% ; ck1 11:30 Pulse 68 MON; Pulse Ox 97% ; ck1 11:30 BP 141 / 67 (auto/); ck1 11:45 BP 142 / 65 (auto/); ck1 11:45 Pulse 76 MON; Pulse Ox 97% ; ck1 12:00 BP 138 / 71 (auto/); ck1 12:00 Pulse 70 MON; Pulse Ox 97% ; ck1 12:15 BP 122 / 60 (auto/); ck1 12:15 Pulse 70 MON; Pulse Ox 96% ; ck1 12:16 Resp 18; Temp 98.2(O); Pain 0/10; ck1 12:38 BP 118 / 72; Pulse 85; Resp 18; Temp 98.2(O); Pulse Ox 97% on R/A; Pain 0/10; ck1 08:00 Body Mass Index 23.69 (66.59 kg, 167.64 cm) ck1 Vitals: 08:00 Log In Time N/A - ambulance arrival. ck1 ED Course: 07:50 Patient visited by Chad Denton PCA. jrd 07:50 Cristian Dunlap is Private Physician. jrd 07:50 Niurka Kaminski RN is Primary Nurse. jrd 07:50 Patient moved to Waiting jrd 07:50 Patient moved to 17 jrd 07:54 Mitali Rios MD is Attending Physician. fg 07:54 Patient visited by Mitali Rios MD. fg 08:00 Triage Initiated ck1 08:14 Patient visited by Niurka Kaminski RN. ck1 08:16 The patient / caregiver is instructed regarding the plan of care and ED course. ck1 08:16 Maintain field IV. Dressing intact. Site clean & dry. Gauge & site: 20 gauge in left FA.ck1 08:37 Patient visited by Karlos Walls PCA. jlf 08:37 Patient visited by Niurka Kaminski RN. ck1 08:37 Patient visited by Karlos Walls PCA. jlf 08:37 CBC with Diff Sent. ck1 08:37 Cardiac Injury Profile Sent. ck1 08:37 Liver Profile Sent. ck1 08:37 MED Profile Sent. ck1 08:37 Thyroid Stimulating Hormone Sent. ck1 08:37 EKG done. (by ED staff). Reviewed by Mitali Rios MD. jlf 08:37 Troponin Sent. ck1 08:37 Urinalysis Sent. ck1 08:38 Urine Culture Sent. ck1 09:00 [facility] [place] was scanned into [employer] and attached to record. pm4 09:04 Patient visited by Karlos Walls PCA. jlf 09:07 Patient name changed from Ritchie\S\\S\Foster\S\ to Ritchie\S\D\S\Foster. EDMS 09:28 Patient visited by Niurka Kaminski RN. ck1 09:43 Patient visited by Karlos Walls PCA. jlf 09:48 CT Head Without Contrast Returned. EDMS 09:48 Chest, 1 View Returned. EDMS 10:08 Patient visited by Niurka Kaminski RN. ck1 10:26 Patient visited by Karlos Walls PCA. jlf 10:50 Patient visited by Karlos Walls PCA. jlf 11:17 Patient visited by Karlos Walls PCA. jlf 11:45 Patient visited by Niurka Kaminski,OLESYA. ck1 12:04 Patient visited by Niurka Kaminski RN. ck1 12:09 No procedures done that require assistance. ck1 12:16 Patient visited by Niurka Kaminski RN. ck1 12:29 Cristian Dunlap is Referral Physician. fg 12:30 EKG-ADULT Returned. EDMS 14:17 PCR was scanned into [employer] and attached to record. jrd 07/20 07:17 T-Sheet-- Draft Copy was scanned into [employer] and attached to record. gb 11:51 ECG/EKG was scanned into [employer] and attached to record. gb Point of Care Testing: Blood Glucose: 07/19 08:41 Blood Glucose: 122 mg/dL; ck1 Ranges: Order Results: Lab Order: CBC with Diff; SPEC'M 07/19/16 08:36 Test: WHITE BLOOD COUNT; Value: 6.3; Range: 4.0-10.0; Units: K/mm3; Status: F Test: RED BLOOD COUNT; Value: 4.32; Range: 4.30-6.10; Units: M/mm3; Status: F Test: HEMOGLOBIN; Value: 11.7; Range: 14.0-18.0; Abnormal: Below low normal; Units: g/dl; Status: F Test: HEMATOCRIT; Value: 34.8; Range: 42.0-52.0; Abnormal: Below low normal; Units: %; Status: F Test: MEAN CORPUSCULAR VOLUME; Value: 80.7; Range: 80.0-96.0; Units: fl; Status: F Test: MEAN CORPUSCULAR HEMOGLOBIN; Value: 27.0; Range: 27.0-33.0; Units: pg; Status: F Test: MEAN CORPUSCULAR HGB CONC; Value: 33.5; Range: 32.0-36.5; Units: g/dl; Status: F Test: RED CELL DISTRIBUTION WIDTH; Value: 13.9; Range: 11.5-14.5; Units: %; Status: F Test: PLATELET COUNT, AUTOMATED; Value: 155; Range: 150-450; Units: k/mm3; Status: F Test: NEUTROPHILS %; Value: 80.7; Range: 36.0-66.0; Abnormal: Above high normal; Units: %; Status: F Test: LYMPH %; Value: 10.4; Range: 24.0-44.0; Abnormal: Below low normal; Units: %; Status: F Test: MONO %; Value: 6.1; Range: 0.0-5.0; Abnormal: Above high normal; Units: %; Status: F Test: EOS %; Value: 0.9; Range: 0.0-3.0; Units: %; Status: F Test: BASO %; Value: 0.2; Range: 0.0-1.0; Units: %; Status: F Test: LARGE UNSTAINED CELL %; Value: 1.7; Range: 0.0-4.0; Units: %; Status: F Test: NEUTROPHILS #; Value: 5.1; Range: 1.8-7.7; Units: K/mm3; Status: F Test: LYMPH #; Value: 0.7; Range: 1.5-4.5; Abnormal: Below low normal; Units: K/mm3; Status: F Test: MONO #; Value: 0.4; Range: 0.0-0.8; Units: K/mm3; Status: F Test: EOS #; Value: 0.1; Range: 0.0-0.50; Units: K/mm3; Status: F Test: BASO #; Value: 0.0; Range: 0.0-0.2; Units: K/mm3; Status: F Test: LARGE UNSTAINED CELL #; Value: 0.1; Range: 0.0-0.4; Units: K/mm3; Status: F Lab Order: Cardiac Injury Profile; SPEC'M 07/19/16 08:36 Test: CPK CREATINE PHOSPHOKINASE; Value: 59; Range: 39-308; Units: U/L; Status: F Test: CK-MB VALUE MASS; Value: 2.9; Range: 0.0-3.6; Units: NG/ML; Status: F Test: MB/CK RELATIVE INDEX; Value: 4.91; Range: < OR =4; Abnormal: Above high normal; Status: F Test Note: ; DIAGNOSIS CRITERIA MMB ng/ml Relative Index (RI) NON-AMI < or = 5 N/A CORREA ZONE > 5 < or = 4 AMI > 5 > 4 Lab Order: Liver Profile; SPEC'M 07/19/16 08:36 Test: AST/SGOT; Value: 15; Range: 15-37; Units: U/L; Status: F Test: ALT/SGPT; Value: 19; Range: 12-78; Units: U/L; Status: F Test: ALKALINE PHOSPHATASE; Value: 114; Range: 45-117; Units: U/L; Status: F Test: BILIRUBIN,TOTAL; Value: 0.6; Range: 0.2-1.0; Units: MG/DL; Status: F Test: BILIRUBIN,DIRECT; Value: 0.2; Range: 0.0-0.2; Units: MG/DL; Status: F Test: TOTAL PROTEIN; Value: 6.0; Range: 6.4-8.2; Abnormal: Below low normal; Units: GM/DL; Status: F Test: ALBUMIN; Value: 3.1; Range: 3.2-5.2; Abnormal: Below low normal; Units: GM/DL; Status: F Test: ALBUMIN/GLOBULIN RATIO; Value: 1.07; Range: 1.00-1.93; Status: F Lab Order: MED Profile; SPEC' 07/19/16 08:36 Test: GLUCOSE, FASTING; Value: 129; Range: 83-110; Abnormal: Above high normal; Units: MG/DL; Status: F Test: BLOOD UREA NITROGEN; Value: 13; Range: 7-18; Units: MG/DL; Status: F Test: CREATININE FOR GFR; Value: 0.84; Range: 0.70-1.30; Units: MG/DL; Status: F Test: GLOMERULAR FILTRATION RATE; Value: > 60.0; Range: >42; Status: F Test: SODIUM LEVEL; Value: 143; Range: 136-145; Units: MEQ/L; Status: F Test: POTASSIUM SERUM; Value: 4.4; Range: 3.5-5.1; Units: MEQ/L; Status: F Test: CHLORIDE LEVEL; Value: 102; Range: 98-107; Units: MEQ/L; Status: F Test: CARBON DIOXIDE LEVEL; Value: 32; Range: 21-32; Units: MEQ/L; Status: F Test: ANION GAP; Value: 9; Range: 8-16; Units: MEQ/L; Status: F Test: CALCIUM LEVEL; Value: 8.7; Range: 8.8-10.2; Abnormal: Below low normal; Units: MG/DL; Status: F Test Note: ; Units are mL/min/1.73 m2 Chronic Kidney Disease Staging per NKF: Stage I & II GFR >=60 Normal to Mildly Decreased Stage III GFR 30-59 Moderately Decreased Stage IV GFR 15-29 Severely Decreased Stage V GFR <15 Very Little GFR Left ESRD GFR <15 on SPECIAL EQUIPMENT TECHNICIAN Lab Order: Thyroid Stimulating Hormone; SPEC'M 07/19/16 08:36 Test: THYROID STIMULATING HORMONE; Value: 1.720; Range: 0.358-3.740; Units: uIU/ML; Status: F Lab Order: Troponin; SPEC'M 07/19/16 08:36 Test: TROPONIN I; Value: 0.08; Range: < 0.10; Units: NG/ML; Status: F Test Note: ; Troponin I Reference Interval for Siemens Rapt LOCI: 99th Percentile= 0.00-0.045 ng/ml Risk Stratification: <= 0.10 ng/ml Decreased Risk for Adverse Clinical Events. 0.10-1.50 ng/ml Increased Risk for Adverse Clinical Events. Evaluation of additional criterion and/or repeat testing in 2-6 hours is suggested to rule out myocardial damage. >= 1.50 ng/ml Indicative of Myocardial Injury. Lab Order: Urinalysis; SPEC'M 07/19/16 08:36 Test: APPEARANCE, URINE; Value: CLEAR; Range: CLEAR; Status: F Test: COLOR, URINE; Value: YELLOW; Range: YELLOW; Status: F Test: PH,URINE; Value: 5.0; Range: 5.0-9.0; Units: UNITS; Status: F Test: SPECIFIC GRAVITY URINE AUTO; Value: 1.015; Range: 1.002-1.035; Status: F Test: PROTEIN, URINE AUTO; Value: NEGATIVE; Range: NEGATIVE; Units: mg/dL; Status: F Test: GLUCOSE, URINE (UA) AUTO; Value: NEGATIVE; Range: NEGATIVE; Units: mg/dL; Status: F Test: KETONE, URINE AUTO; Value: NEGATIVE; Range: NEGATIVE; Units: mg/dL; Status: F Test: UROBILINOGEN, URINE AUTO; Value: 0.2; Range: 0.0-2.0; Units: mg/dL; Status: F Test: BILIRUBIN, URINE AUTO; Value: NEGATIVE; Range: NEGATIVE; Status: F Test: NITRITE, URINE AUTO; Value: NEGATIVE; Range: NEGATIVE; Status: F Test: LEUKOCYTE ESTERASE, URINE AUTO; Value: NEGATIVE; Range: NEGATIVE; Status: F Test: BLOOD, URINE BLOOD; Value: NEGATIVE; Range: NEGATIVE; Status: F Test: WBC, URINE AUTO; Value: 1; Range: 0-3; Units: /HPF; Status: F Test: RBC, URINE AUTO; Value: 1; Range: 0-3; Units: /HPF; Status: F Test: BACTERIA, URINE AUTO; Value: NEGATIVE; Range: NEGATIVE; Status: F Test: SQUAMOUS EPITHELIAL CELL UR AU; Value: 0; Range: 0-6; Units: /HPF; Status: F Test: MUCUS, URINE; Value: SMALL; Range: NEGATIVE; Status: F Test: HYALINE CAST, URINE AUTO; Value: 8; Range: 0-1; Units: /LPF; Status: F Lab Order: Urine Culture; SPEC'M 07/19/16 08:36 Test: URINE CULTURE; Value: URINE CULTURE RESULT NO GROWTH; Status: F Lab Order: Fingerstick Blood Sugar; SPEC'M 07/19/16 08:40 Test: BEDSIDE GLUCOSE; Value: 122; Range: 83-110; Abnormal: Above high normal; Units: MG/DL; Status: F Radiology Order: CT Head Without Contrast Test: CT Head Without Contrast REASON FOR EXAMINATION: altered mental status; CT HEAD WITHOUT CONTRAST:; ; HISTORY: Altered mental status.; ; COMPARISON: 06/12/2016; ; Areas of decreased attenuation are present in the periventricular and subcortical; white matter. This represents small vessel ischemic disease. There is no; intraparenchymal hemorrhage, mass or midline shift. The ventricular system and; cortical sulci as well as subarachnoid space in the posterior fossa are dilated; consistent with moderate volume loss. There is no extracerebral collection. The; visualized sinuses are clear.; ; IMPRESSION:; ; 1. Small vessel ischemic disease.; ; 2. Moderate volume loss.; ; ; Signed by; Jonny Steinberg MD 07/19/2016 09:58 A; Radiology Order: Chest, 1 View Test: Chest, 1 View REASON FOR EXAMINATION: Chest Pain; SINGLE VIEW CHEST: Single view of the chest is performed. Comparison 07/17/2016; as well as prior exams.; ; There are extensive bilateral calcified pleural plaques with significant pleural; thickening and parenchymal fibrosis in the right lung base. There is no definite; superimposed acute infiltrate. Heart is mildly prominent in size. There is mild; calcification of the thoracic aorta. 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 ck1 12:09 Discharge Assessment: patient administered narcotics - no. Property :Personal ck1 belongings accompany Pt. 12:29 Discharge ordered by Provider. fg 12:37 The following High Risk Discharge criteria are identified: None. Discharged to home ck1 ambulatory, with family. Condition: stable. Discharge instructions given to patient, family, Instructed on discharge instructions, follow up and referral plans. medication usage, Demonstrated understanding of instructions, medications, Pt was receptive of discharge instructions/ teaching. 12:46 Patient left the ED. ck1 Signatures: Dispatcher [employer] EDMS Karol Hung, Reg Reg gb Niurka Kaminski RN RN ck1 Karlos Walls, TRIMMER OPERATOR THREE KNIFE TRIMMER OPERATOR THREE KNIFE Chad Garcia, TRIMMER OPERATOR THREE KNIFE TRIMMER OPERATOR THREE KNIFE Mitali Rubio MD MD Shad Gold, Reg Reg pm4 Chart Complete MTDD
== END 2016-07-19 12:46 | disposition home or self-care (01) ==
LOC: M ED 07:49
DX: F03.90 Unspecified dementia, unspecified severity, without behavioral disturbance, psychotic disturbance, mood disturbance, and anxiety (principal); R41.0 Disorientation, unspecified; I50.9 Heart failure, unspecified; E11.9 Type 2 diabetes mellitus without complications; K21.9 Gastro-esophageal reflux disease without esophagitis; E78.00 Pure hypercholesterolemia, unspecified; I10 Essential (primary) hypertension; Z86.73 Personal history of transient ischemic attack (TIA), and cerebral infarction without residual deficits; Z79.82 Long term (current) use of aspirin; Z79.02 Long term (current) use of antithrombotics/antiplatelets; Z79.899 Other long term (current) drug therapy; Z88.5 Allergy status to narcotic agent

== ENCOUNTER → 2016-08-20 | Outpatient (CLI) | payer MEDICARE ==
--- NOTE | 2016-08-20 10:51 | REP ---
PA and lateral chest: Comparisons are 07/17/2016 and 03/16/2016. There is chronic effacement of the costophrenic angle suggestive of chronic bilateral pleural effusions. Alternatively this could represent pleural effusions. Calcific pleural plaque is again noted, unchanged. There are no focal infiltrates. Cardiac size is upper normal, unchanged. The corinne, mediastinum, and bony thorax are unchanged. Impression: Bilateral pleural effusions. Calcific pleural plaque. No significant change from the comparison studies. Signed by Aaron Guzman MD 08/20/2016 10:42 A
== END ==
LOC: M CLY 09:52
PROVIDERS: ATTEND Family Medicine
DX: J90 Pleural effusion, not elsewhere classified (principal)

== ENCOUNTER → 2016-09-19 | Outpatient (REF) | payer MEDICARE ==
[2016-09-19 18:14] LABS: MEAN CORPUSCULAR HEMOGLOBIN 26.6 pg (27.0-33.0); MEAN CORPUSCULAR HGB CONC 31.5 g/dl (32.0-36.5); MEAN CORPUSCULAR VOLUME 84.5 fl (80.0-96.0); RED CELL DISTRIBUTION WIDTH 14.1 % (11.5-14.5); WHITE BLOOD COUNT 8.2 K/mm3 (4.0-10.0)
[2016-09-19 18:41] LABS: ANION GAP 11 MEQ/L (8-16); BLOOD UREA NITROGEN 12 MG/DL (7-18); CALCIUM LEVEL 8.7 MG/DL (8.8-10.2); CARBON DIOXIDE LEVEL 31 MEQ/L (21-32); CHLORIDE LEVEL 99 MEQ/L (98-107); CREATININE FOR GFR 0.87 MG/DL (0.70-1.30); DIGOXIN LEVEL 1.2 NG/ML (0.5-2.0); GLOMERULAR FILTRATION RATE > 60.0 (>42); GLUCOSE, FASTING 91 MG/DL (83-110); POTASSIUM SERUM 4.4 MEQ/L (3.5-5.1); SODIUM LEVEL 141 MEQ/L (136-145)
== END ==
LOC: M SFHCCLAY 13:42
PROVIDERS: ATTEND Family Medicine
DX: I48.92 Unspecified atrial flutter (principal); I50.9 Heart failure, unspecified

== ENCOUNTER → 2016-09-19 | Outpatient (CLI) | payer MEDICARE ==
--- NOTE | 2016-09-19 15:36 | REP ---
CHEST, TWO VIEWS: HISTORY: Congestive heart failure. COMPARISON: 08/20/2016. Bilateral calcified pleural plaques are present. Linear densities are present in the right lower lobe consistent with scar. There is blunting of the costophrenic angles due to pleural thickening or pleural effusions. The heart is normal in size. The pulmonary vasculature is normal in appearance. The bony structure is intact. IMPRESSION: 1. Findings consistent with asbestosis. 2. Right lower lobe scarring. 3. There is blunting of the costophrenic angles due to pleural thickening or small pleural effusions.
== END ==
LOC: M CLY 12:49
PROVIDERS: ATTEND Family Medicine
DX: J61 Pneumoconiosis due to asbestos and other mineral fibers (principal); J98.4 Other disorders of lung; Z79.899 Other long term (current) drug therapy
CPT/HCPCS: 71020; 80048; 80162; 84443; 85027; G0463

== ENCOUNTER → 2016-11-02 | Outpatient (REF) | payer MEDICARE ==
[~2016-11-02] MED LIST changes: -COLA100C PO; +COLA100C3 PO
== END ==
LOC: M SFHCCLAY 09:45
PROVIDERS: ATTEND Family Medicine
DX: R32 Unspecified urinary incontinence (principal)

== ENCOUNTER → 2016-12-05 | Outpatient (REF) | payer MEDICARE ==
[2016-12-05 13:21] LABS: MEAN CORPUSCULAR HEMOGLOBIN 27.8 pg (27.0-33.0); MEAN CORPUSCULAR VOLUME 81.6 fl (80.0-96.0); RED CELL DISTRIBUTION WIDTH 15.7 % (11.5-14.5); WHITE BLOOD COUNT 7.4 K/mm3 (4.0-10.0)
[2016-12-05 14:38] LABS: ANION GAP 4 MEQ/L (8-16); BLOOD UREA NITROGEN 22 MG/DL (7-18); CALCIUM LEVEL 9.6 MG/DL (8.8-10.2); CARBON DIOXIDE LEVEL 34 MEQ/L (21-32); CHLORIDE LEVEL 101 MEQ/L (98-107); CREATININE FOR GFR 0.88 MG/DL (0.70-1.30); DIGOXIN LEVEL 1.2 NG/ML (0.5-2.0); GLOMERULAR FILTRATION RATE > 60.0 (>42); GLUCOSE, FASTING 118 MG/DL (83-110); SODIUM LEVEL 139 MEQ/L (136-145)
[2016-12-05 14:43] LABS: POTASSIUM SERUM 5.5 MEQ/L (3.5-5.1)
== END ==
LOC: M LAB REF 12:24
PROVIDERS: ATTEND Family Medicine
DX: J61 Pneumoconiosis due to asbestos and other mineral fibers (principal); I50.32 Chronic diastolic (congestive) heart failure; Z79.899 Other long term (current) drug therapy

== ENCOUNTER → 2016-12-19 | Outpatient (REF) | payer MEDICARE ==
[2016-12-19 18:50] LABS: ANION GAP 4 MEQ/L (8-16); BLOOD UREA NITROGEN 20 MG/DL (7-18); CALCIUM LEVEL 9.4 MG/DL (8.8-10.2); CARBON DIOXIDE LEVEL 35 MEQ/L (21-32); CHLORIDE LEVEL 102 MEQ/L (98-107); CREATININE FOR GFR 0.84 MG/DL (0.70-1.30); GLOMERULAR FILTRATION RATE > 60.0 (>35); GLUCOSE, FASTING 56 MG/DL (83-110); POTASSIUM SERUM 4.2 MEQ/L (3.5-5.1); SODIUM LEVEL 141 MEQ/L (136-145)
== END ==
LOC: M LAB REF 17:28
PROVIDERS: ATTEND Family Medicine
DX: E87.5 Hyperkalemia (principal)